=== PATIENT | male | born 1955 | race Caucasian/White ===

== ENCOUNTER 2016-11-01 12:55 | Emergency (ER) | payer OTHER ==
[~2016-11-01] VITALS: Ht 172.7 cm; Wt 63.5 kg
[2016-11-01 13:15] VITALS: BP 131/85
--- NOTE | 2016-11-01 13:38 | RAD ---
Exam performed: CT scan of the head without contrast. Date of Service: 11/01/16. Comparison: None available. Clinical History: Headache after head. Technique: Helical acquisitions are obtained from the foramen magnum to the vertex without intravenous administration of contrast. Findings: The ventricles are midline without evidence of dilatation. Normal maki-white differentiation is maintained. There is no extra axial fluid collection, intraparenchymal hemorrhage or mass lesion. Maxillary sinus. The visualized portions of the orbits and the mastoid air cells appear clear. The calvarium is intact. Impression: 1. No acute intracranial process detected. 2. Chronic right mesentery sinus disease PQRS Compliance Statement: One or more of the following individualized dose reduction techniques were utilized for this examination: 1. Automated exposure control 2. Adjustment of the mA and/or kV according to patient size 3. Use of iterative reconstruction technique
[2016-11-01] MEDS ORDERED: AMOX1TAB61 PO (14:09)
--- NOTE | 2016-11-01 14:09 | PHYS DOC ---
Adult General Chief Complaint Chief Complaint: HEADACHE HPI HPI Patient is a 60 year old male with history of smoking who presents with mild right lateral head pain that began today after he hit his head on a bar above his head when he stood from bending position been. Patient denies any loss of consciousness. He states he feels tired. Patient denies this being the worst headache in his life. Review of Systems Review of Systems Constitutional: Denies fever or chills [] Eyes: Denies change in visual acuity, redness, or eye pain [] HENT: Denies nasal congestion or sore throat [] Respiratory: Denies cough or shortness of breath [] Cardiovascular: No additional information not addressed in HPI [] GI: Denies abdominal pain, nausea, vomiting, bloody stools or diarrhea [] : Denies dysuria or hematuria [] Musculoskeletal: Denies back pain or joint pain [] Integument: Denies rash or skin lesions [] Neurologic: headache Endocrine: Denies polyuria or polydipsia [] Allergies Allergies Allergies Coded Allergies Type Severity Reaction Last Updated Verified No Known Drug Allergies 11/01/16 No Physical Exam Physical Exam Constitutional: Well developed, well nourished, no acute distress, non-toxic appearance. [] HENT: Normocephalic, atraumatic, bilateral external ears normal, oropharynx moist, no oral exudates, nose normal. [] Eyes: PERRLA, EOMI, conjunctiva normal, no discharge. [] Neck: Normal range of motion, no tenderness, supple, no stridor. [] Cardiovascular:Heart rate regular rhythm, no murmur [] Lungs & Thorax: Bilateral breath sounds clear to auscultation [] Abdomen: Bowel sounds normal, soft, no tenderness, no masses, no pulsatile masses. [] Skin: Warm, dry, no erythema, no rash. [] Back: No tenderness, no CVA tenderness. [] Extremities: No tenderness, no cyanosis, no clubbing, ROM intact, no edema. [] Neurologic: Alert and oriented X 3, normal motor function, normal sensory function, no focal deficits noted. Cranial nerves II through XII intact Psychologic: Affect normal, judgement normal, mood normal. [] EKG EKG [] Radiology/Procedures Radiology/Procedures []PROCEDURE: CT HEAD WO CONTRAST Exam performed: CT scan of the head without contrast. Date of Service: 11/01/16. Comparison: None available. Clinical History: Headache after head. Technique: Helical acquisitions are obtained from the foramen magnum to the vertex without intravenous administration of contrast. Findings: The ventricles are midline without evidence of dilatation. Normal maki-white differentiation is maintained. There is no extra axial fluid collection, intraparenchymal hemorrhage or mass lesion. Maxillary sinus. The visualized portions of the orbits and the mastoid air cells appear clear. The calvarium is intact. Impression: 1. No acute intracranial process detected. 2. Chronic right mesentery sinus disease PQRS Compliance Statement: One or more of the following individualized dose reduction techniques were utilized for this examination: 1. Automated exposure control 2. Adjustment of the mA and/or kV according to patient size 3. Use of iterative reconstruction technique DICTATED and SIGNED BY: CHRISTIAN TURCIOS MD DATE: 11/01/16 1333 CC: CAR CHASE APRN ~ Course & Med Decision Making Course & Med Decision Making Pertinent Labs and Imaging studies reviewed. (See chart for details) Patient is in the ED with head contusion after hitting his head on a bar at work. He was complaining of feeling tired. He did not loss of consciousness. He was very concerned about his injury. We talked about benefits and risk of CT of the head. He requested CT of the head is negative for any acute findings but was noted for chronic sinus infection. I did give him a prescription for Augmentin. Recommended he follows up with his own doctor. He has history of smoking, we recommended he considers smoking cessation. Dragon Disclaimer Dragon Disclaimer This electronic medical record was generated, in whole or in part, using a voice recognition dictation system. Departure Departure Impression: Primary Impression: Smoking addiction Additional Impressions: Head contusion Sinusitis, chronic Disposition: HOME, SELF-CARE Condition: STABLE Patient Instructions: Contusion, Sinusitis Additional Instructions: You were seen for forehead contusion. Your CT of the head was negative for any acute findings. You have chronic sinus infection. Consider smoking cessation, this will cut on this disease. Complete your antibiotics for the sinus infection. Follow-up with your own doctor in 1-2 weeks. Come back to the ED at any point symptoms worsen especially if you develop any confusion, excessive sleepiness, uncontrolled pain. Uncontrolled nausea vomiting. Scripts Amoxicillin/Potassium Clav (AUGMENTIN [id number] TABLET) 1 Each Tablet 1 TAB PO BID, #20 TAB Prov: CAR CHASE APRN 11/01/16 Problem Qualifiers Additional Impressions: Head contusion Encounter type: initial encounter Contusion of head detail: scalp Qualified Codes: S00.03XA - Contusion of scalp, initial encounter Sinusitis, chronic Sinusitis location: other Qualified Codes: J32.8 - Other chronic sinusitis CAR CHASE APRN November 01, 2016 14:09
== END 2016-11-01 14:20 | disposition home or self-care (01) ==
LOC: ER 14:16
DX: S00.93XA Contusion of unspecified part of head, initial encounter (principal); J32.9 Chronic sinusitis, unspecified; F17.200 Nicotine dependence, unspecified, uncomplicated; W22.8XXA Striking against or struck by other objects, initial encounter; Y93.89 Activity, other specified; Y92.89 Other specified places as the place of occurrence of the external cause; Y99.8 Other external cause status
CPT/HCPCS: 70450; 99284-25

== ENCOUNTER 2017-09-16 16:32 | Emergency (ER) | payer OTHER | END 2017-09-16 17:59 | disposition home or self-care (01) | LOC: ER 17:59 | DX: S61.012A Laceration without foreign body of left thumb without damage to nail, initial encounter (principal); Y28.8XXA Contact with other sharp object, undetermined intent, initial encounter; Y93.89 Activity, other specified; Y99.8 Other external cause status; Y92.89 Other specified places as the place of occurrence of the external cause | CPT/HCPCS: 12002; 99283-25 ==